=== PATIENT | female | born 1985 | race African-American/Black ===

== ENCOUNTER 2016-06-17 13:34 | Emergency (ER) | payer SELFPAY | END 2016-06-17 17:34 | disposition home or self-care (01) | LOC: ER 13:34 | DX: O26.891 Other specified pregnancy related conditions, first trimester (principal); R10.2 Pelvic and perineal pain; Z32.01 Encounter for pregnancy test, result positive; Z3A.09 9 weeks gestation of pregnancy; O99.331 Smoking (tobacco) complicating pregnancy, first trimester | CPT/HCPCS: 36415; 76817; 80053; 81003; 83690; 84702; 84703; 85025; 87491; 87591; 87800 ==